=== PATIENT | female | born 1970 | race Caucasian/White ===

== ENCOUNTER 2023-03-20 16:23 | Outpatient (OUT) | payer OTHER, SELFPAY ==
[2023-03-20 16:41] LABS: Basophils Absolute Auto 0.1 10^3/uL (0.0-0.1); Basophils Percent Auto 1.3 % (0.2-2.0); Eosinophils Absolute Auto 0.1 10^3/uL (0.0-0.7); Eosinophils Percent Auto 1.8 % (0.9-7.0); Hematocrit 39.9 % (36.0-48.0); Hemoglobin 13.5 g/dL (12.0-16.0); Immature Granulocytes Abs Auto 0.01 10^3/uL (0.00-0.03); Immature Granulocytes Pct Auto 0.2 % (0.0-0.5); Mean Corpuscular HGB Conc 33.8 g/dL (29.9-35.2); Mean Corpuscular Hemoglobin 30.7 pg (26.7-34.0); Mean Corpuscular Volume 90.7 fL (81.0-99.0); Mean Platelet Volume 9.5 fL (9.5-13.5); Monocytes Absolute Auto 0.6 10^3/uL (0.3-0.8); Monocytes Percent Auto 10.5 % (1.7-12.0); Neutrophils Absolute Auto 2.7 10^3/uL (1.4-6.5); Neutrophils Percent Auto 49.2 % (43.0-75.0); Platelet Count 304 10^3/uL (150-450); Red Cell Distribution Width 12.1 % (11.0-15.0); White Blood Count 5.4 10^3/uL (4.0-11.0)
== END 2023-03-20 16:24 | disposition home or self-care (01) ==
LOC: LAB 16:23
PROVIDERS: Nurse Practitioner Family; PCP Family Medicine; Visit Provider Family Medicine
DX: R53.83 Other fatigue (principal)
CPT/HCPCS: 36415; 85025

== ENCOUNTER 2023-03-21 15:20 | Outpatient (OUT) | payer OTHER, SELFPAY ==
--- NOTE | 2023-03-21 | MM_ITS ---
Patient: LAUREN HARRELL Exam Date: 03/21/2023 : 1970 Gender:F Ordering : DR MISTI JIMÉNEZ Admission #: [id number] Family : DR Manuel Saucedo . Order #: [id number] CLICK HERE TO VIEW EXAM RADIOLOGY REPORT PROCEDURE: MM TOMOSYNTHESIS SCREENING BI COMPARISON: MG MAMM SCREEN 3D SB CAD, 03/20/2022. INDICATIONS: Screening Calculator Name NCI Breast Cancer Risk Assessment Tool 5 Year Breast Cancer Risk 1.20% Lifetime Breast Cancer Risk 8.50% Personal Breast Cancer No Personal Ovarian Cancer No Treatments None Family Cancers Grandmother-paternal with breast cancer at age ~65; Father with lymphoma cancer at age 70. LOCATION: [facility] BREAST COMPOSITION: Heterogeneously dense,which may obscure small masses. FINDINGS: DIAGNOSTIC CATEGORY 2--BENIGN FINDING. NO CHANGE FROM COMPARISON. Scattered benign-appearing calcifications are present. Scattered benign-appearing lymph nodes are present. This exam includes additional mammographic views for implant evaluation and shows no visible implant abnormality. RIGHT BREAST: No significant suspicious finding. LEFT BREAST: No significant suspicious finding. RECOMMENDATIONS: ROUTINE MAMMOGRAM AND CLINICAL EVALUATION IN 12 MONTHS. PLEASE NOTE: A NORMAL MAMMOGRAM DOES NOT EXCLUDE THE POSSIBILITY OF BREAST CANCER. A CLINICALLY SUSPICIOUS PALPABLE LUMP SHOULD BE BIOPSIED. Dictated by: Pj Rocha MD on 03/22/2023 at 08:33 Approved by: Pj Rocha MD on 03/22/2023 at 08:36
== END 2023-03-21 15:21 | disposition home or self-care (01) ==
LOC: MAMMO 15:21
PROVIDERS: PCP Family Medicine; Visit Provider Obstetrics & Gynecology
DX: Z12.31 Encounter for screening mammogram for malignant neoplasm of breast (principal); Z80.3 Family history of malignant neoplasm of breast; Z80.7 Family history of other malignant neoplasms of lymphoid, hematopoietic and related tissues
CPT/HCPCS: 77063; 77067

== ENCOUNTER 2024-03-24 15:21 | Outpatient (OUT) | payer OTHER, SELFPAY ==
--- NOTE | 2024-03-24 15:23 | MM_ITS ---
Patient Name: LAUREN HARRELL MR#: [id number] : 1970 Exam Date: 03/24/2024 Ordering Doctor: DR MISTI JIMÉNEZ RADIOLOGY REPORT PROCEDURE: MM TOMOSYNTHESIS SCREENING BI COMPARISON: MM TOMOSYNTHESIS SCREENING BI, 03/21/2023. MG MAMM SCREEN 3D SB CAD, 03/20/2022. MG MAMM SCREEN 3D SB CAD, 03/14/2021. MG MAMM SCREEN SB W CAD, 12/02/2012. INDICATIONS: Screening Calculator Name NCI Breast Cancer Risk Assessment Tool 5 Year Breast Cancer Risk 1.20% Lifetime Breast Cancer Risk 8.30% Personal Breast Cancer No Personal Ovarian Cancer No Treatments None Family Cancers Grandmother-paternal with breast cancer at age ~65; Father with lymphoma cancer at age 70. LOCATION: [facility] BREAST COMPOSITION: The breasts are heterogeneously dense,which may obscure small masses. FINDINGS: DIAGNOSTIC CATEGORY 2--BENIGN FINDING: RIGHT BREAST: No significant suspicious finding. Stable heterogeneous breast parenchyma. This exam includes additional mammographic views for implant evaluation and shows no visible implant abnormality. No significant change has occurred. LEFT BREAST: No significant suspicious finding. Stable heterogeneous breast parenchyma. This exam includes additional mammographic views for implant evaluation and shows no visible implant abnormality. No significant change has occurred. RECOMMENDATIONS: ROUTINE MAMMOGRAM AND CLINICAL EVALUATION IN 12 MONTHS. PLEASE NOTE: A NORMAL MAMMOGRAM DOES NOT EXCLUDE THE POSSIBILITY OF BREAST CANCER. A CLINICALLY SUSPICIOUS PALPABLE LUMP SHOULD BE BIOPSIED. Dictated by: Malcolm Rand M.D. on 03/25/2024 at 11:16 Approved by: Malcolm Rand M.D. on 03/25/2024 at 11:30
== END 2024-03-24 15:22 | disposition home or self-care (01) ==
LOC: MAMMO 15:21
PROVIDERS: PCP Family Medicine; Visit Provider Obstetrics & Gynecology
DX: Z12.31 Encounter for screening mammogram for malignant neoplasm of breast (principal); Z80.3 Family history of malignant neoplasm of breast; Z80.7 Family history of other malignant neoplasms of lymphoid, hematopoietic and related tissues
CPT/HCPCS: 77063; 77067

== ENCOUNTER 2025-03-30 15:53 | Outpatient (OUT) | payer OTHER, SELFPAY ==
--- OUTSIDE RECORDS SUMMARY | 2025-03-30 15:55 | XMS_ITS | Encounter Summary ---
Author Organization [facility] Address [address] [place] [address] Care Team Providers Care Group Contract Analyst Name Role Phone Manuel Saucedo MD Primary Care Provider [phone] Encounter Details Date Type Department Care Team (Late Contact Info) Description 04/07/2024 Orders Only MARSHA BOURNE [address] [facility] [address] [place] [phone] Chau Limon MD [address] [facility] [address] [place] [address] Social History Tobacco Use Types Packs/Day Years Used Date Smoking Tobacco: Never Smokeless Tobacco: Never Alcohol Use Standard Drinks/Week Comments Not Currently 0 (1 standard drink = 0.6 oz pure alcohol) caffeine: 1-2 cups per days, coffee Comments No Sex and Gender Information Value Date Recorded Sex Assigned at Female 12/25/2022 3:44 PM EDT Legal Sex Female 6:46 PM EDT Gender Identity Female 12/25/2022 3:44 PM EDT Sexual Orientation Not on file documented as of this encounter Plan of Treatment Upcoming Encounters Date Type Department Care Team (Late Contact Info) Description 01/10/2026 10:00 AM EDT Office Visit MARSHA BOURNE [address] [place] [address] Chau Liomn MD [address] [place] [address] documented as of this encounter Procedures Procedure Name Priority Date/Time Associated Diagnosis Comments MAMMOGRAM* Routine 03/24/2024 8:17 AM EDT documented in this encounter Results * MAMMOGRAM* (03/24/2024 8:17 AM EDT) Anatomical Region Laterality Modality Radiographic Sherie ging us Chau Limon MD IMG XR PROCEDURES Final Result documented in this encounter Visit Diagnoses Not on filedocumented in this encounter Care Teams Group Contract Analyst Relationship Specialty Start Date End Date Manuel Saucedo MD PCP - General Family Medicine 11/16/22 documented as of this encounter
--- OUTSIDE RECORDS SUMMARY | 2025-03-30 15:55 | XMS_ITS | Encounter Summary ---
Author Organization [facility] Address [address] [facility] [place] [address] Care Team Providers Care Pump Room Operator Name Role Phone Manuel Saucedo MD Primary Care Provider [phone] Encounter Details Date Type Department Care Team (Late Contact Info) Description 03/25/2024 Clinisync Result Encounter [facility] External Department Unsolicited Chau Jiménez MD [address] [facility] [address] [place] [address] Social History Tobacco Use Types Packs/Day Years [...] EDT Office Visit MARSHA BOURNE [address] [facility] [address] [place] [phone] Chau Jiménez MD [address] [facility] [address] [place] [address] documented as of this encounter Procedures Procedure Name Priority Date/Time Associated Diagnosis Comments MM TOMOSYNTHESIS SCREENING BI 03/25/2024 11:30 AM EDT documented in this encounter Results * MM TOMOSYNTHESIS SCREENING BI (03/25/2024 11:30 AM EDT) Anatomical Region Laterality Modality Other 03/25/2024 11:3 0 AM EDT Narrative 03/25/2024 11:31 [place] [address] Mammography Report Signed Patient: LAUREN HARRELL MR#: [id number] : 1970 Acct:[id number] Age/Sex: 53 / F ADM Date: 03/24/24 Loc: MAMMO Attending Dr: CHAU JIMÉNEZ Ordering Physician: CHAU JIMÉNEZ Results: Date of Service: 03/24/24 Follow Up: Procedure(s): MM tomosynthesis screening BI Accession Number(s): [id number] cc: Manuel Saucedo M.D.; CHAU JIMÉNEZ Patient Name: LAUREN HARRELL MR#: [id number] : 1970 Exam Date: 03/24/2024 Ordering Doctor: DR CHAU JIMÉNEZ RADIOLOGY REPORT PROCEDURE: MM TOMOSYNTHESIS SCREENING BI COMPARISON: MM TOMOSYNTHESIS SCREENING BI, 03/21/2023. MG MAMM SCREEN 3D SB CAD, 03/20/2022. MG MAMM SCREEN 3D SB CAD, 03/14/2021. MG MAMM SCREEN SB W CAD, 12/02/2012. INDICATIONS: Screening Calculator Name NCI Breast Cancer Risk Assessment Tool 5 Year Breast Cancer Risk 1.20% Lifetime Breast Cancer Risk 8.30% Personal Breast Cancer No Personal Ovarian Cancer No Treatments None Family Cancers Grandmother-paternal with breast cancer at age 65; Father with lymphoma cancer at age 70. LOCATION: The [facility] BREAST COMPOSITION: The breasts are heterogeneously dense,which may obscure small masses. FINDINGS: DIAGNOSTIC CATEGORY 2--BENIGN FINDING: RIGHT BREAST: No significant suspicious finding. Stable heterogeneous breast parenchyma. This exam includes additional mammographic views for implant evaluation and shows no visible implant abnormality. No significant change has occurred. LEFT BREAST: No significant suspicious finding. Stable heterogeneous breast parenchyma. This exam includes additional mammographic views for implant evaluation and shows no visible implant abnormality. No significant change has occurred. RECOMMENDATIONS: ROUTINE MAMMOGRAM AND CLINICAL EVALUATION IN 12 MONTHS. PLEASE NOTE: A NORMAL MAMMOGRAM DOES NOT EXCLUDE THE POSSIBILITY OF BREAST CANCER. A CLINICALLY SUSPICIOUS PALPABLE LUMP SHOULD BE BIOPSIED. Dictated by: Malcolm Rand M.D. on 03/25/2024 at 11:16 Approved by: Malcolm Rand M.D. on 03/25/2024 at 11:30 Dictated By: Malcolm Rand M.D. Signed By: 03/25/24 1131 DD/ 1130 TD/TT: Head Greenskeeper: Procedure Note Radiology, Radiologist, MD - 03/25/2024 [place] [address] Mammography Report Signed Patient: LAUREN HARRELL AMR#: [id number] : 1970Acct:[id number] Age/Sex: 53 / FADM Date: 03/24/24 Loc: MAMMO Attending Dr: CHAU JIMÉNEZ Ordering Physician: CHAU JIMÉNEZResults: Date of Service: 03/24/24Follow Up: Procedure(s): MM tomosynthesis screening BI Accession Number(s): [id number] cc: Manuel Saucedo M.D.; CHAU JIMÉNEZ Patient Name: LAUREN HARRELL MR#: [id number] : 1970 Exam Date: 03/24/2024 Ordering Doctor: DR CHAU JIMÉNEZ RADIOLOGY REPORT PROCEDURE: MM TOMOSYNTHESIS SCREENING BI COMPARISON: MM TOMOSYNTHESIS SCREENING BI, 03/21/2023. MG MAMM [id number] SB CAD, 03/20/2022. MG MAMM SCREEN 3D SB CAD, 03/14/2021. MG MAMMSCREEN SB W CAD, 12/02/2012. INDICATIONS: Screening Calculator Name NCI Breast Cancer Risk Assessment Tool 5 Year Breast Cancer Risk 1.20% Lifetime Breast Cancer Risk 8.30% Personal Breast Cancer No Personal Ovarian Cancer No Treatments None Family Cancers Grandmother-paternal with breast cancer at age 65; Father with lymphoma cancer at age 70. LOCATION: [facility] BREAST COMPOSITION: The breasts are heterogeneously dense,which may obscure small masses. FINDINGS: DIAGNOSTIC CATEGORY 2--BENIGN FINDING: RIGHT BREAST: No significant suspicious finding. Stable heterogeneousbreast parenchyma. This exam includes additional mammographic views for implant evaluation and shows no visible implant abnormality. No significantchange has occurred. LEFT BREAST: No significant suspicious finding. Stable heterogeneousbreast parenchyma. This exam includes additional mammographic views for implant evaluation and shows no visible implant abnormality. No significantchange has occurred. RECOMMENDATIONS: ROUTINE MAMMOGRAM AND CLINICAL EVALUATION IN 12 MONTHS. PLEASE NOTE: A NORMAL MAMMOGRAM DOES NOT EXCLUDE THE POSSIBILITY OFBREAST CANCER. A CLINICALLY SUSPICIOUS PALPABLE LUMP SHOULD BE BIOPSIED. Dictated by: Malcolm Rand M.D. on 03/25/2024 at 11:16 Approved by: Malcolm Rand M.D. on 03/25/2024 at 11:30 Dictated By: Malcolm Rand M.D. Signed By:03/25/24 1131 DD/ 1130 TD/TT: Head Greenskeeper: us Chau Jiménez MD [facility] Final Result documented in this encounter Visit Diagnoses Not on filedocumented in this encounter Care Teams Pump Room Operator Relationship Specialty Start Date End Date Manuel Saucedo MD PCP - General Family Medicine 11/16/22 documented as of this encounter
--- OUTSIDE RECORDS SUMMARY | 2025-03-30 15:55 | XMS_ITS | Patient Health Record ---
Author Organization [facility] [place] Address [address] [place] [address] Care Team Providers Care Addresser Name Role Phone Jeanmarie Saucedo Primary Care Provider [phone] Allergies Allergen (clinical drug ingredient) Drug/Non Drug Allergy documented on EMR Reaction Allergy Type Onset Date Status Penicillin hives/ throat swelling Drug Allergy Active Results Component Value Reference Range Notes CBC AUTO DIFF Reviewed date:02/02/2025 08:31:50 PM Interpretation: Performing Lab: Notes/Report: [facility] , White Blood Count 4.5 4.0-11.0 10 3/uL Red Blood Count 4.69 4.20-5.40 10 6/uL Hemoglobin 14.7 12.0-16.0 g/dL Hematocrit 43.3 36.0-48.0 % Mean Corpuscular Volume 92.3 81.0-99.0 fL Mean Corpuscular Hemoglobin 31.3 26.7-34.0 pg Mean Corpuscular HGB Conc 33.9 29.9-35.2 g/dL Red Cell Distribution Width 12.4 11.0-15.0 % Platelet Count 291 150-450 10 3/uL Mean Platelet Volume 10.6 9.5-13.5 fL Neutrophils Percent Auto 46.3 43.0-75.0 % Lymphocytes Percent Auto 39.4 20.5-60.0 % Monocytes Percent Auto 9.8 1.7-12.0 % Eosinophils Percent Auto 2.9 0.9-7.0 % Basophils Percent Auto 1.6 0.2-2.0 % Immature Granulocytes Pct Auto 0.0 0.0-0.5 % Neutrophils Absolute Auto 2.1 1.4-6.5 10 3/uL Lymphocytes Absolute Auto 1.8 1.2-3.8 10 3/uL Monocytes Absolute Auto 0.4 0.3-0.8 10 3/uL Eosinophils Absolute Auto 0.1 0.0-0.7 10 3/uL Basophils Absolute Auto 0.1 0.0-0.1 10 3/uL Immature Granulocytes Abs Auto 0.00 0.00-0.03 10 3/uL Performing Lab: see note ML - [facility] LB LIPID PROFILE Reviewed date:02/02/2025 08:31:50 PM Interpretation: Performing Lab: Notes/Report: [facility] , Triglycerides 40 <=150 mg/dL Cholesterol 228 <=200 mg/dL HDL Cholesterol 112 40-60 mg/dL > or =60 mg/dl - LOW CARDIOVASCULAR RISK <40 mg/dl - HIGH CARDIOVASCULAR RISK LDL Cholesterol Calculated 108.0 130-159 mg/dl BORDERLINE HIGH >190 mg/dl VERY HIGH 100-129 mg/dl NEAR OR ABOVE OPTIMAL 160-189 mg/dl HIGH <100 mg/dl OPTIMAL VLDL CHOLESTEROL 8.0 Chol HDL Ratio 2.0 >11.0 HIGH RISK 4.4 - 7.1 AVERAGE RISK 7.1 - 11.0 MODERATE RISK 3.3 - 4.4 LOW RISK Performing Lab: see note ML - [facility] LB PROF 14(COMP METB) Reviewed date:02/02/2025 08:31:50 PM Interpretation: Performing Lab: Notes/Report: [facility] , Sodium 140 136-145 mmol/L Potassium 4.3 3.5-5.1 mmol/L Chloride 104 98-107 mmol/L Carbon Dioxide 25.3 21.0-32.0 mmol/L Anion Gap 15.0 Glucose 77 74-106 mg/dL Blood Urea Nitrogen 19.0 7.0-18.0 mg/dL Creatinine 0.68 0.55-1.02 mg/dL Estimated GFR ( Brynn >60 >=60 mL/min/1.73m 2 Estimated GFR (Non- Brittny >60 >=60 mL/min/1.73m 2 BUN Creatinine Ratio 27.9 Calcium 8.8 8.5-10.1 mg/dL Bilirubin Total 0.5 0.2-1.0 mg/dL Aspartate Amino Transferase 23 15-37 U/L Alanine Aminotransferase 19 14-59 U/L Alkaline Phosphatase 51 46-116 U/L Total Protein 7.5 6.4-8.2 g/dL Albumin Level 4.0 3.4-5.0 g/dL Globulin 3.5 Albumin Globulin Ratio 1.1 Performing Lab: see note ML - [facility] LB TSH Reviewed date:02/02/2025 08:31:50 PM Interpretation: Performing Lab: Notes/Report: [facility] , Thyroid Stimulating Hormone 2.663 0.358-3.740 u IU/mL Performing Lab: see note ML - [facility] LB Reason For Referral Diagnosis 1 Left ear pain (H92.0 2) Referral Organization [facility] Referring Provider First Name Jeanmarie Referring Provider Last Name Lewis Referring Provider Speciality Family [facility] oly Referred Provider Elizabeth Nayak Referred Provider Specialty Otolaryngolo gy Referral Priority Routine Medications Medication SIG (Take, Route, Frequency, Duration) Notes Start Date End Date Status Progesterone Active Social History Tobacco Use: Social History Observation Description Date Details (start date - stop date) Never Smoker NA - NA Tobacco Use/Smoking Question Answer Notes Patient is a nonsmoker Alcohol Screen (Audit-C) Question Answer Notes Did you have a drink contain ing alcohol in the past year? Yes How often did you have 6 or more drinks on one occasion in the past year? Never (0 point) How many drinks did you have on a typical day when you were drinking in the past year? 1 or 2 drinks (0 point) How often did you have a dri nk containing alcohol in the past year? Monthly (2 points) Points 2 Interpretation Negative Problems Problem Type SNOMED Code ICD Code Onset Dates Problem Status W/U Status Risk Notes Problem Lumbosacral spondylosis without myelopathy (71367898) Other spondylosis with radiculopathy, lumbar region (M47.26) Active confirmed Problem Degeneration of lumbar intervertebral disc (68333289) Other intervertebral disc degeneration, lumbar region (M51.36) Active confirmed Problem Cervical radiculopathy (32454781) Radiculopathy, cervicothoracic region (M54.13) Active confirmed Problem Palpitations (52396812) Palpitations (R00.2) Active confirmed Problem Skin sensation disturbance (14957180) Unspecified disturbances of skin sensation (R20.9) Active confirmed Problem Wedge compressio n fracture of fourth lumbar vertebra, subsequent encounter for fracture with delayed healing (S32.040G) Active confirmed Problem Closed fracture of distal end of left radius (92288798157678007) Other intraarticular fracture of lower end of left radius, initial encounter for closed fracture (S52.572A) Active confirmed Problem Neck pain (57332798) Neck pain (M54.2) Active confirmed Problem Knee pain (9948817322) Knee pain (M25.569) Active confirmed Problem Degeneration of cervical intervertebral disc (90397080) Degenerative disc disease, cervical (M50.30) Active confirmed Problem Acute sinusitis (55784963) Acute sinusitis (J01.90) Active confirmed Problem Disorder of lumbar disc (732521493) Lumbar disc disease (M51.9) Active confirmed Problem Serous otitis media (63764778) Serous otitis media (H65.90) Active confirmed Problem Gastritis (4921541) Gastritis (K29.70) Active c onfirmed Problem Well adult (995074068) Well adult (Z00.00) Active confirmed Problem Cervical spondylosis with myelopathy (M47.12) Active confirmed Problem Pain in limb (31223466) Hand pain, left (M79.642) Active confirmed Problem Scoliosis (102476720) Scoliosis (M41.9) Active confirmed Problem Chest wall pain (390557524) Chest wall pain (R07.89) Active confirmed Problem Acquired spondylolisthesis (128533486) Spondylolisthesis of lumbar region (M43.16) Active confirmed Problem Premenstrual tension syndrome (66758334) PMS (premenstrual syndrome) (N94.3) Active confirmed Problem Labyrinthitis (54655543) Labyrinthitis (H83.09) Active confirmed Problem Open wound of finger (925007141) Open wound of finger (S61.209A) Active confirmed Problem Peripheral vertigo (03820042) Peripheral vertigo (H81.399) Active confirmed Problem Patellar tendonitis (20031514) Patellar tendonitis (M76.50) Active confirmed Problem Lipoma of skin (414498453) Lipoma of skin (D17.30) Active confirmed Problem Displacement of cervical intervertebral disc without myelopathy (80216338) Other cervical disc displacement, mid-cervical region, unspecified level (M50.220) Active confirmed Problem Cervical spondylosis without myelopathy (022604723) Spondylosis of cervical spine with radiculopathy (M47.22) Active confirmed Problem Low back pain (363770591) Low back pain, unspecified (M54.50) Active confirmed Vital Signs Blood pressure diastolic 86 mm Hg 06/04/2024 Height 64 in 06/04/2024 Blood pressure systolic 110 mm Hg 06/04/2024 Weight 123.4 lbs 06/04/2024 BMI 21.18 kg/m2 06/04/2024 Procedures Procedure Date Ordered Date Performed Result Body Sit e EAR IRRIGATION - performed 05/13/2024 N/A Encounters Encounter Location Date Provider Diagnosis [address] [address] 05/13/2024 Jeanmarie Hoy Cerumen impaction H61.20 ; Hand pain M79.643 and Excessive cerumen in left ear canal H61.[address] [address] 06/04/2024 Jeanmarie Hoy Serous otitis media H65.[address] [address] 02/02/2025 Jeanmarie Hoy [address] [address] 05/22/[address] [facility] [address] [place] [address] 09/14/2024 Jeanmarie Hoy Left ear pain H92.0 2 Assessments Encounter Date Diagnosis (ICD Code) Assessment Notes Treatment Notes Treatment Clinical Notes Section Notes 06/04/2024 Serous otitis media (ICD-10 - H65.90) dpuible th claritin - do the flonase and gavage and if not better -- see dr Nayak 05/13/2024 Cerumen impaction (ICD-10 - H61.20) 05/13/2024 Hand pain (ICD-10 - M79.643) no x-ray needed 09/14/2024 Left ear pain (ICD-10 - H92.02) 05/13/2024 Excessive cerumen in left ear canal (ICD-10 - H61.22) Plan Of Treatment Pending Test Test Name Order Date EAR IRRIGATION - performed 05/13/2024 CBC AUTO DIFF 02/03/2023 MRI LSPINE WO CON 10/03/2022 Insurance Providers Payer Name Payer Address Payer Phone Subscriber Number Group Number Insured Name Patient Relationship to Insured Coverage Start Date Coverage End Date MMO [employer] [address] [place] [phone] [id number] Darrick garcia Yuko Self - patient is the insured Medical (General) History Medical History History ICD Code Other intraarticular fractur e of lower end of left radius, initial encounter for closed fracture S52.572A Acute sinusitis J01.90 Otitis media, serous H65.90 Hand pain, left M79.642 Knee pain M25.569 Palpitations R00.2 Well adult Z00.00 Lumbar disc disease M51.9 Neck pain M54.2 Low back pain, unspecified M54.50 Cervical spondylosis with myelopathy M47 .12 Other cervical disc displacement, mid-ce rvical region, unspecified level M50.220 Wedge compression fracture o f fourth lumbar vertebra, subsequent encounter for fracture with delayed healing S32.040G Scoliosis M41.9 Spondylolisthesis of lumbar region M43.1 6 Spondylosis of cervical spine with radic ulopathy M47.22 Other spondylosis with radiculopathy, maryjane mbar region M47.26 Chest wall pain R07.89 Hand pain, left M79.642 Open wound of finger S61.209A Patellar tendonitis M76.50 Radiculopathy, cervicothoracic region M5 4.13 Degenerative disc disease, cervical M50. 30 Labyrinthitis H83.09 Peripheral vertigo H81.399 Unspecified disturbances of skin sensati on R20.9 Lipoma of skin D17.30 PMS (premenstrual syndrome) N94.3 Surgical History Surgery Date(Month/Year) Left wrist surgery 03/2022
--- OUTSIDE RECORDS SUMMARY | 2025-03-30 15:55 | XMS_ITS | Encounter Summary ---
Author Organization [facility] Address [address] [facility] [place] [address] Care Team Providers Care Optical Instrument Assembly Supervisor Name Role Phone Manuel Saucedo MD Primary Care Provider [phone] Encounter Details Date Type Department Care Team (Late Contact Info) Description 03/22/2023 Clinisync Result Encounter [facility] External Department Unsolicited Chau Jiménez MD [address] [facility] [address] [place] [address] Social History Tobacco Use Types Packs/Day Years [...] Description 01/10/2026 10:00 AM EDT Office Visit [facility] [address] [facility] [address] [place] [id number] Chau Jiménez MD [address] [facility] [address] [place] [address] documented as of this encounter Procedures Procedure Name Priority Date/Time Associated Diagnosis Comments MM TOMOSYNTHESIS SCREENING BI 03/22/2023 8:36 AM EDT documented in this encounter Results * MM TOMOSYNTHESIS SCREENING BI (03/22/2023 8:36 AM EDT) Anatomical Region Laterality Modality Other 03/22/2023 8:36 AM EDT Narrative 03/22/2023 8:[place] [address] Mammography Report Signed Patient: LAUREN HARRELL MR#: [id number] : 1970 Acct:[id number] Age/Sex: 52 / F ADM Date: 03/21/23 Loc: MAMMO Attending Dr: CHAU JIMÉNEZ Ordering Physician: CHAU JIMÉNEZ Results: Date of Service: 03/21/23 Follow Up: Procedure(s): MM tomosynthesis screening BI Accession Number(s): [id number] cc: Manuel Saucedo M.D.; CHAU JIMÉNEZ Patient: LAUREN HARRELL Exam Date: 03/21/2023 : 1970 Gender:F Ordering : DR CHAU JIMÉNEZ Admission #: [id number] Family : DR Manuel Saucedo . Order #: [id number] CLICK HERE TO VIEW EXAM RADIOLOGY REPORT PROCEDURE: MM TOMOSYNTHESIS SCREENING BI COMPARISON: MG MAMM SCREEN 3D SB CAD, 03/20/2022. INDICATIONS: Screening Calculator Name NCI Breast Cancer Risk Assessment Tool 5 Year Breast Cancer Risk 1.20% Lifetime Breast Cancer Risk 8.50% Personal Breast Cancer No Personal Ovarian Cancer No Treatments None Family Cancers Grandmother-paternal with breast cancer at age 65; Father with lymphoma cancer at age 70. LOCATION: [facility] BREAST COMPOSITION: Heterogeneously dense,which may obscure small masses. FINDINGS: DIAGNOSTIC CATEGORY 2--BENIGN FINDING. NO CHANGE FROM COMPARISON. Scattered benign-appearing calcifications are present. Scattered benign-appearing lymph nodes are present. This exam includes additional mammographic views for implant evaluation and shows no visible implant abnormality. RIGHT BREAST: No significant suspicious finding. LEFT BREAST: No significant suspicious finding. RECOMMENDATIONS: ROUTINE MAMMOGRAM AND CLINICAL EVALUATION IN 12 MONTHS. PLEASE NOTE: A NORMAL MAMMOGRAM DOES NOT EXCLUDE THE POSSIBILITY OF BREAST CANCER. A CLINICALLY SUSPICIOUS PALPABLE LUMP SHOULD BE BIOPSIED. Dictated by: Pj Rocha MD on 03/22/2023 at 08:33 Approved by: Pj Rocha MD on 03/22/2023 at 08:36 Dictated By: Pj Rocha M.D. Signed By: 03/22/2337 DD/ 5 TD/TT: Airport Baggage Screener: Procedure Note Radiology, Radiologist, MD - 03/22/2023 [place] [address] Mammography Report Signed Patient: LAUREN HARRELL AMR#: [id number] : 1970Acct:[id number] Age/Sex: 52 / FADM Date: 03/21/23 Loc: MAMMO Attending Dr: CHAU JIMÉNEZ Ordering Physician: CHAU JIMÉNEZResults: Date of Service: 03/21/23Follow Up: Procedure(s): MM tomosynthesis screening BI Accession Number(s): [id number] cc: Manuel Saucedo M.D.; CHAU JIMÉNEZ Patient: LAUREN HARRELL Exam Date: 03/21/2023 : 1970 Gender:F Ordering : DR CHAU JIMÉNEZ Admission #: [id number] Family : DR Manuel Saucedo . Order #: [id number] CLICK HERE TO VIEW EXAM RADIOLOGY REPORT PROCEDURE: MM TOMOSYNTHESIS SCREENING BI COMPARISON: MG MAMM SCREEN 3D SB CAD, 03/20/2022. INDICATIONS: Screening Calculator Name NCI Breast Cancer Risk Assessment Tool 5 Year Breast Cancer Risk 1.20% Lifetime Breast Cancer Risk 8.50% Personal Breast Cancer No Personal Ovarian Cancer No Treatments None Family Cancers Grandmother-paternal with breast cancer at age 65; Father with lymphoma cancer at age 70. LOCATION: [facility] BREAST COMPOSITION: Heterogeneously dense,which may obscure smallmasses. FINDINGS: DIAGNOSTIC CATEGORY 2--BENIGN FINDING. NO CHANGE FROM COMPARISON. Scattered benign-appearing calcifications are present. Scattered benign-appearing lymph nodes are present. This exam includes additional mammographic views for implant evaluation and shows no visible implant abnormality. RIGHT BREAST: No significant suspicious finding. LEFT BREAST: No significant suspicious finding. RECOMMENDATIONS: ROUTINE MAMMOGRAM AND CLINICAL EVALUATION IN 12 MONTHS. PLEASE NOTE: A NORMAL MAMMOGRAM DOES NOT EXCLUDE THE POSSIBILITY OFBREAST CANCER. A CLINICALLY SUSPICIOUS PALPABLE LUMP SHOULD BE BIOPSIED. Dictated by: Pj Rocha MD on 03/22/2023 at 08:33 Approved by: Pj Rocha MD on 03/22/2023 at 08:36 Dictated By: Pj Rocha M.D. Signed By:03/22/2337 DD/ TD/TT: Airport Baggage Screener: us Chau Jiménez MD [facility] Final Result documented in this encounter Visit Diagnoses Not on filedocumented in this encounter Care Teams Optical Instrument Assembly Supervisor Relationship Specialty Start Date End Date Manuel Saucedo MD PCP - General Family Medicine 11/16/22 documented as of this encounter
--- OUTSIDE RECORDS SUMMARY | 2025-03-30 15:55 | XMS_ITS | Encounter Summary ---
Author Organization [facility] Address [address] [place] [address] Care Team Providers Care Retail Brand Ambassador Name Role Phone Manuel Saucedo MD Primary Care Provider [phone] Encounter Details Date Type Department Care Team (Late Contact Info) Description 12/25/2022 Abstract [facility] [address] [place] [address] Chau Limon MD [address] [facility] [address] [place] [address] Social History Tobacco Use Types Packs/Day Years [...] Upcoming Encounters Date Type Department Care Team ([facility] Contact Info) Description 01/10/2026 10:00 AM EDT Office Visit [facility] [address] [place] [address] Chau Limon MD [address] [place] [address] documented as of this encounter Visit Diagnoses Not on filedocumented in this encounter Care Teams Retail Brand Ambassador Relationship Specialty Start Date End Date Manuel Saucedo MD PCP - General Family Medicine 11/16/22 documented as of this encounter
--- OUTSIDE RECORDS SUMMARY | 2025-03-30 15:55 | XMS_ITS | Clinical Summary ---
Author Organization [employer] [facility] Address [id number] [address] [place] [address] Care Team Providers Care Hardboard Press Operator Name Role Phone Manuel Saucedo MD Primary Care Provider [phone] Allergies Active Allergy Reactions Criticality Noted Date Comments Penicillins Hives 03/20/2022 Medications oxyCODONE-acetam inophen (PERCOCET) 5-325 mg per tablet Take 1 tablet by mouth every 6 (six) hours as needed. 03/17/2022 Active valACYclovir (VALTREX) 500 mg tablet Take 1 tablet by mouth as needed. 03/07/2022 Active Social History Tobacco Use Types Packs/Day Years Used Date Smoking Tobacco: Never Smokeless Tobacco: Never Alcohol Use Standard Drinks/Week Comments Yes 0 (1 standard drink = 0.6 oz pur e alcohol) social Comments No Sex and Gender Information Value Date Recorded Sex Assigned at Not on file Legal Sex Female 10:26 AM EDT Gender Identity Not on file Sexual Orientation Not on file Last Filed Vital Signs Vital Sign Reading Time Taken Comments Blood Pressure 108/88 03/21/2022 5:48 PM EDT Pulse 63 03/21/2022 5:48 PM EDT Temperature 36.5 C (97.7 F) 03/21/2022 5:09 PM EDT Respiratory Rate 14 03/21/2022 5:48 PM EDT Oxygen Saturation 97% 03/21/2022 5:48 PM EDT Inhaled Oxygen Concentration - - Weight 54.4 kg (120 lb) 03/21/2022 1:17 PM EDT Height 162.6 cm (5' 4 ) 03/21/2022 1:17 PM EDT Body Mass Index 20.6 03/21/2022 1:17 PM EDT Plan of Treatment Health Maintenance Due Date Last Done Comments Depression Screening 1980 Tobacco Screening 1980 Adult BMI Screening 1986 DTaP,Tdap and Td Vaccines (1 - Tdap) 1987 Pap Smear 1989 Zoster (Shingles) Vaccine (1 of 2) 2018 COVID-19 Vaccine (4 - 2024-2 6 season) 2025 05/31/2021, 08/19/2020, 07/29/2020 Influenza Vaccine 02/15/2025 Medical Devices Implanted Type Area Environmental Test Technician Device Identifier Shelf Expiration Date Model / Serial / Lot Plate Bn Jayro Cntr 5 Hl Xtd Slot Gft Wdw Radl Lt Dist Volr Ti Rad Jayro Jayme Lo Prof Rig - [id number] - [id number] Implanted:Qty: 1 on 03/21/2022 by Fidencio Sutherland DO at [facility] Plate Left: Wrist Arthrex AR-[id number]- 05 / AR-8916VNL- 05 / 2.4 Mm Melanie Screws Titanium [id number] Implanted:Qty: 1 on 03/21/2022 by Fidencio Sutherland DO at [facility] Left: Wrist Arthrex AR-8724VCL- 18 / AR-8724VCL- 18 / 2.4 Mm Melanie Screws Titanium [id number] Implanted:Qty: 2 on 03/21/2022 by Fidencio Sutherland DO at [facility] Left: Wrist Arthrex AR-[id number]- 20 / AR-[id number]- 20 / 3.5 Mm Low Profile Screw Fixed Angle Locking Titanium Cortical [id number] Implanted:Qty: 2 on 03/21/2022 by Fidencio Sutherland DO at [facility] Left: Wrist Arthrex 8935VCL-12 / [id number]-12 / 3.5 Mm Low Profile Screw Nonlocking, Titanium, Cortical [id number] Implanted:Qty: 1 on 03/21/2022 by Fidencio Sutherland DO at [facility] Left: Wrist Arthrex AR-8935-12 / [id number] / Insurance [employer] Care Teams Hardboard Press Operator Relationship Specialty Start Date End Date Manuel Saucedo MD PCP - General Family Medicine 03/20/22
--- OUTSIDE RECORDS SUMMARY | 2025-03-30 15:55 | XMS_ITS | Clinical Summary ---
Author Organization [facility] Address [address] [place] [address] Care Team Providers Care Appellate Court Clerk Name Role Phone Manuel Saucedo MD Primary Care Provider [phone] Allergies Active Allergy Reactions Criticality Noted Date Comments Penicillins Hives,Unknown 03/17/2022 Medications nabumetone (Relafen) 500 MG tablet every 12 (twelve) hours 2 Active fluticasone (Flonase) 50 MCG/ACT nasal sprayIndication s:Nasal congestion Administer 2 sprays into each nostril Daily Shake gently. Before first use, prime pump. After use, clean tip and replace cap. 48 g 3 5 10/14/19 26 Active estradiol (Estrace) 1 MG tabletIndicatio ns:Menopausal symptoms Take 1 tablet (1 mg) by mouth Daily 90 tablet 3 5 01/05/20 26 Active progesterone (Prometrium) 100 MG capsuleIndicati ons:Menopausal symptoms Take 1 capsule (100 mg) by mouth Daily 90 capsule 3 5 Active valACYclovir (Valtrex) 500 MG tabletIndicatio ns:History of HPV infection Take 1 tablet (500 mg) by mouth Daily 90 tablet 3 5 01/07/20 26 Active Active Problems Problem Noted Date Diagnosed Date Arthritis of carpometacarpal (CMC) joint of left thumb 09/28/2024 Chronic left maxillary sinusitis 09/28/2024 Hearing loss of left ear 09/28/2024 Lumbosacral spondylosis without myelopathy 09/28 Serous otitis media 09/28/2024 Other spondylosis with radiculopathy, lumbar reg ion 11/17/2022 Lumbar paraspinal muscle spasm 11/17/2022 Encounters Date Type Department Care Team Description 01/08/2025 Refill [facility] [address] [place] [address] Heena Carballo LPN History of HPV infection 01/04/2025 2:00 PM EDT Office Visit [facility] [address] [place] [address] Chau Limon MD Well woman exam with routine gynecological exam (Primary Dx); Menopausal symptoms; Cervical cancer screening; Other screening mammogram; Screening for HPV (human papillomavirus); History of HPV infection 01/04/2025 Travel from Last 3 Months Family History Medical History Relation Name Comments Breast cancer Mother's Sister Heidi Breast cancer Paternal Grandmother Gill Relation Name Status Comments Father Alive Mother Alive Mother's Sister Heidi Paternal Grandmother Gill Social History Tobacco Use Types Packs/Day Years Used Date Smoking Tobacco: Never Smokeless Tobacco: Never Tobacco Cessation:Counseling Given: Not Answered Alcohol Use Standard Drinks/Week Comments Not Currently 0 (1 standard drink = 0.6 oz pure alcohol) caffeine: 1-2 cups per days, coffee Comments No Sex and Gender Information Value Date Recorded Sex Assigned at Female 12/25/2022 3:44 PM EDT Legal Sex Female 6:46 PM EDT Gender Identity Female 12/25/2022 3:44 PM EDT Sexual Orientation Not on file Last Filed Vital Signs Vital Sign Reading Time Taken Comments Blood Pressure 112/66 01/04/2025 1:42 PM EDT Pulse 86 10/13/2024 2:55 PM EDT Temperature - - Respiratory Rate - - Oxygen Saturation - - Inhaled Oxygen Concentration - - Weight 55.3 kg (122 lb) 01/04/2025 1:42 PM EDT Height 162.6 cm (5' 4 ) 10/13/2024 2:55 PM EDT Body Mass Index 20.94 10/13/2024 2:55 PM EDT Plan of Treatment Upcoming Encounters Date Type Department Care Team (Late st Contact Info) Description 01/10/2026 10:00 AM EDT Office Visit [facility] [address] [place] [address] Chau Limon MD [address] [place] [address] Procedures Procedure Name Priority Date/Time Associated Diagnosis Comments IGP, APT HPV,RFX 16/18,45 Routine 01/04/2025 12:00 AM EDT Cervical cancer screening Screening for HPV (human papillomavirus) from Last 3 Months Results * IGP, APT HPV,RFX 16/18,45 (01/04/2025 12:00 AM EDT) Diagnosis: Comment [facility] Comment:NEGATIVE FOR INTRAEP ITHELIAL LESION OR MALIGNANCY. Specimen Adequacy: Comment [facility] Comment: Satisfactory for evaluation. Endocervical and/or squamous metaplastic cells (endocervical component) are present. Clinician Provided ICD10: Comment [facility] Comment: Z12.4 Z11.51 Performed By: Comment [facility] Comment:Diana Rocha, Cytolog ist (ASCP) Cyto Comments . [facility] Note: Comment [facility] Comment: The Pap smear is a screening test designed to aid in the detection of premalignant and malignant conditions of the uterine cervix. It is not a diagnostic procedure and should not be used as the sole means of detecting cervical cancer. Both false-positive and false-negative reports do occur. Test Methodology: Comment [facility] Comment: This liquid based ThinPrep(R) pap test was screened with the use of an image guided system. HPV Aptima Negative Negative [facility] Comment: This nucleic acid amplification test detects fourteen high-risk HPV types (16,18,31,33,35,39,45,51,52,56,58,59,66,68) without differentiation. Vaginal Fluid 01/04/2025 01/05/2025 Narrative [facility] - 01/06/2025 1:07 PM EDT Performed at: 01 - [facility] [address] [place], [place] [id number] Traveling Buyer: Pham Reaves MD, Phone: [phone] Performed at: 02 - [facility] [address] [place], [place] [id number] Traveling Buyer: Pham Reaves MD, Phone: [phone] Specimen Comment: No. of containers..01 ThinPrep Vial us Chau Limon MD LAB BLOOD ORDERABLES Final Res ult [facility] from Last 3 Months Insurance [employer] Care Teams Appellate Court Clerk Relationship Specialty Start Date End Date Manuel Saucedo MD PCP - General Family Medicine 11/16/22
--- OUTSIDE RECORDS SUMMARY | 2025-03-30 15:56 | XMS_ITS | CCD ---
Author Organization [facility] Care Team Providers Care Machine Sorter Name Role Phone PHYSICIAN, DEFAULT Unavailable Unavailable PHYSICIAN, DEFAULT Unavailable Unavailable MD Olga Saucedo Primary Care Provider [phone] SIM Fowler Emergency Provider [phone] Ever Fowler Attending Unavailable Ever Fowler Admitting Unavailable Olga Saucedo Primary Care Unavailable OLEMA, DR DEMARCO Estrada Consulting Unavailable PRINTY, DR CHAPPELL Admitting Unavailable PRINTY, DR CHAPPELL Attending Unavailable HOY ., DR ESPINOZA Primary Care Unavailable PRINTY, DR CHAPPELL Consulting Unavailable HOY ., DR ESPINOZA Attending Unavailable HOY ., DR ESPINOZA Admitting Unavailable HOY ., DR ESPINOZA Primary Care Unavailable HOY ., DR ESPINOZA Consulting Unavailable ZIEBER, DR ROSEMARIE Stanley Consulting Unavailable HOY ., DR ESPINOZA Attending Unavailable HOY ., DR ESPINOZA Admitting Unavailable HOY ., DR ESPINOZA Primary Care Unavailable HOY ., DR ESPINOZA Consulting Unavailable HOY ., DR ESPINOZA Attending Unavailable HOY ., DR ESPINOZA Admitting Unavailable HOY ., DR ESPINOZA Primary Care Unavailable HOY ., DR ESPINOZA Attending Unavailable HOY ., DR ESPINOZA Admitting Unavailable HOY ., DR ESPINOZA Primary Care Unavailable HOY ., DR ESPINOZA Consulting Unavailable ZIEBER, DR ROSEMARIE Stanley Consulting Unavailable HOY ., DR ESPINOZA Attending Unavailable HOY ., DR ESPINOZA Admitting Unavailable HOY ., DR ESPINOZA Primary Care Unavailable HOY ., DR ESPINOZA Consulting Unavailable Marvely Olga HIGH Primary Care Provider [phone] Olga Saucedo MD Primary Care Provider ELIZABETH ENCINAS Attending Unavailable MISTI LIMON Attending Unavailable Allergies Allergy Classification Reported Allergen(s) Allergy Type Date of Onset Reaction(s) Facility (9 sources) Penicillins; Translations: [Penicillins] Allergy to substance 5 Hives, Unknown [facility] Medications Current Medications Medication Drug Class(es) Dates Sig (Normalized) Sig (Original) acetaminophen 325 mg / oxyCODONE hydrochloride 5 mg oral tablet (1 source) Opioid Agonist Start: 03-17-2022 take 1 tablet by mouth every six hours Oxycodone-Acetami nophen (Endocet) 5-325 mg tablet Active 1 TAB PO Q6H 8 2 March 17, 2022 estradiol 1 mg oral tablet (8 sources) Estrogen Start: 12-31-2023 End: 01-04-2026 take 1 tablet by mouth once daily estradiol (Estrace) 1 MG tablet Indications: Menopausal symptoms Take 1 tablet (1 mg) by mouth Daily 90 tablet 3 01/04/2025 01/04/2026 Active fluticasone propionate 0.05 mg/actuat metered dose nasal spray (5 sources) Corticosteroid Start: 10-13-2024 End: 10-13-2025 take 2 spray(s) nasal route once daily fluticasone (Flonase) 50 MCG/ACT nasal spray Indications: Nasal congestion Administer 2 sprays into each nostril Daily Shake gently. Before first use, prime pump. After use, clean tip and replace cap. 48 g 3 10/13/2024 10/13/2025 Active nabumetone 500 mg oral tablet (6 sources) Nonsteroidal Anti-inflammatory Drug Start: 12-19-2021 nabumetone (Relafen) 500 MG tablet every 12 (twelve) hours 12/19/2021 Active progesterone 100 mg oral capsule (8 sources) Progesterone Start: 01-04-2025 take 1 capsule by mouth once daily progesterone (Prometrium) 100 MG capsule Indications: Menopausal symptoms Take 1 capsule (100 mg) by mouth Daily 90 capsule 3 01/04/2025 Active Start: 12-28-2024 End: 01-04-2025 take 1 capsule by mouth once daily at bedtime, then take 1-12 capsules by mouth every month progesterone 200 MG capsule Indications: Menopausal symptoms TAKE 1 CAPSULE BY MOUTH DAILY AT BEDTIME ON DAYS 1-12 EACH MONTH 12 capsule 12/28/2024 01/04/2025 Discontinued (Side effects) Start: 12-31-2023 take 1 capsule by [facility] once daily, then take 1-12 capsules by mouth every month at bedtime progesterone (Prometrium) 200 MG capsule Indications: Menopausal symptoms Take 1 capsule (200 mg) by mouth Daily Take at bedtime days 1-12 each month 36 capsule 3 12/31/2023 Active Completed/Discontinued Medications Medication Drug Class(es) Dates Sig (Normalized) Sig (Original) valACYclovir 500 mg oral tablet (5 sources) Herpesvirus Nucleoside Analog DNA Polymerase Inhibitor, Herpes Simplex Virus Nucleoside Analog DNA Polymerase Inhibitor, Herpes Zoster Virus Nucleoside Analog DNA Polymerase Inhibitor Start: 08-31-2024 End: 10-13-2024 take 1 tablet by mouth in the morning valACYclovir (Valtrex) 500 MG tablet Indications: HSV infection TAKE 1 TABLET BY MOUTH IN THE MORNING AND 1 TABLET BEFORE BEDTIME FOR 3 DAYS 6 tablet 7 08/31/2024 10/13/2024 Discontinued (Therapy completed) Problems Active Problems Problem Classification Problem Date Documented Date Episodic/Chronic Fracture of upper limb (2 sources) Fracture at wrist and/or hand level; Translations: [Fracture of unspecified carpal bone, unspecified wrist, initial encounter for closed fracture] Onset: 03-17-2022 03-17-2022 Episodic Immunizations and screening for infectious disease (2 sources) Patient encounter status; Translations: [Encounter for screening for human papillomavirus (HPV)] 01-04-2025 Episodic Menopausal disorders (2 sources) Menopausal symptom; Translations: [Menopausal and female climacteric states] 01-04-2025 Chronic Osteoarthritis (6 sources) Arthritis of first carpometacarpal joint of left hand; Translations: [Unilateral primary osteoarthritis of first carpometacarpal joint, left hand] Onset: 09-28-2024 09-28-2024 Chronic Other ear and sense organ disorders (6 sources) Hearing loss in left ear; Translations: [Unspecified hearing loss, left ear] Onset: 09-28-2024 09-28-2024 Chronic Other ear and sense organ disorders (2 sources) Otalgia, left ear; Translations: [Otalgia, unspecified] 10-13-2024 Episodic Other infections; including parasitic (2 sources) History of human papilloma virus infection; Translations: [Personal history of other infectious and parasitic diseases] 01-04-2025 Episodic Other screening for suspected conditions (not mental disorders or infectious disease) (8 sources) Encounter for screening mammogram for malignant neoplasm of breast; Translations: [Cancer cervix screening status] Onset: 03-20-2022 Episodic Other upper respiratory disease (2 sources) Nasal congestion; Translations: [Nasal congestion] 10-13-2024 Episodic Other upper respiratory infections (6 sources) Chronic left maxillary sinusitis; Translations: [Chronic maxillary sinusitis] Onset: 09-28-2024 09-28-2024 Chronic Spondylosis; intervertebral disc disorders; other back problems (16 sources) Other spondylosis with radiculopathy, lumbar region; Translations: [Lumbar spondylosis] Onset: 10-02-2022 Chronic Unclassified (1 source) Pain in left wrist; Translations: [Pain in left wrist] Onset: 03-17-2022 Unclassified (3 sources) COUGH, UNSPECIFIED; Translations: [COUGH, UNSPECIFIED] Onset: 06-08-2022 Unclassified (1 source) CONTACT W/AND (SUSP) EXPOS COVID-19; Translations: [CONTACT W/AND (SUSP) EXPOS COVID-19] Onset: 06-08-2022 Past or Other Problems Problem Classification Problem Date Documented Date Episodic/Chronic Other upper respiratory disease (1 source) Nasal congestion; Translations: [NASAL CONGESTION] Onset: 06-08-2022 Episodic Otitis media and related conditions (6 sources) Serous otitis media; Translations: [Unspecified nonsuppurative otitis media, unspecified ear] Onset: 09-28-2024 09-28-2024 Episodic Residual codes; unclassified (1 source) Family history of malignant neoplasm of breast; Translations: [FAMILY HX MALIG NEOPLASM OF BREAST] Onset: 03-22-2022 Episodic Residual codes; unclassified (1 source) Family history of other malignant neoplasms of lymphoid, hematopoietic and related tissues; Translations: [FAM HX OTH MAL MAUREEN LYMPH HEMATPOETC] Onset: 03-22-2022 Episodic Spondylosis; intervertebral disc disorders; other back problems (11 sources) Pain in thoracic spine; Translations: [Cervicalgia] Onset: 10-08-2022 Episodic Unclassified (1 source) COUGH, UNSPECIFIED; Translations: [COUGH, UNSPECIFIED] Onset: 06-04-2022 Results Test Name Value Interpretation Reference Range Facil ity XR CSPINE 2_3 VIEWSon 2022 XR CSPINE 2_3 VIEWS EXAMINATION: XR CSPINE 2_3 VIEWS HISTORY: Neck pain COMPARISON: No relevant comparison available. FINDINGS: BONES: Mild left convex curvature of cervical spine. Slight reversal of normal lordotic curvature. Mild degenerative facet arthropathy at all cervical levels. Minimal grade 1 anterolisthesis of C4 on 5. DISC SPACES: Mild narrowing C3-4, C4-5. Moderate narrowing C5-6, C6-7. Small-moderate disc-osteophyte complex suspected multiple levels. PARASPINOUS: Negative. No paraspinous abnormality is seen. OTHER: Negative. IMPRESSION: 1. Moderate degenerative changes of the cervical spine. 2. Abnormal curvature of cervical spine; positioning versus muscle spasm. Electronically authenticated by: ROSEMARIE MUHAMMAD Date: 2022-10-09 06:[address] [facility] XR TSPINE 2 VIEWSon 10-10-19 23 XR TSPINE 2 VIEWS EXAMINATION: XR TSPINE 2 VIEWS HISTORY: Pain in thoracic spine COMPARISON: No relevant comparison available. FINDINGS: BONES: Marked right convex curvature of thoracic spine. DISC SPACES: No significant disc height narrowing, subluxation, or endplate abnormality. PARASPINOUS: Negative. No paraspinous abnormality is seen. OTHER: Negative. IMPRESSION: 1. Marked dextroscoliosis of thoracic spine. 2. No appreciable acute abnormality or significant degenerative changes. Electronically authenticated by: ROSEMARIE MUHAMMAD Date: 2022-10-09 06:[address] [facility] XR LSPINE 2_3 VIEWSon 2022 XR LSPINE 2_3 VIEWS EXAMINATION: XR LSPINE 2_3 VIEWS HISTORY: Lumbar spondylosis ; chronic left hip pain; chronic right knee pain COMPARISON: XR L-spine 08/28/2018 FINDINGS: BONES: Prominent left convex curvature of lumbar spine. Grade 1 left lateral listhesis of L3 on 4. Grade 1 anterior listhesis of L4 on 5. No fracture or bone lesion. Moderate degenerative facet arthropathy L3-L4 through L5-S1. DISC SPACES: Multilevel mild narrowing. Moderate narrowing at L5-S1. PARASPINOUS: Negative. No paraspinous abnormality is seen. OTHER: Negative. IMPRESSION: 1. Levoscoliosis and mild-moderate degenerative changes of lumbar spine; slightly progressed. Electronically authenticated by: ROSEMARIE MUHAMMAD Date: 2022-10-03 07:26 Normal [facility] Covid-19 PCR (CVDTB)on 05-17 SARS-CoV-2 (COVID-19) RNA VAN+probe Ql (Unsp spec) Not detected Normal NOT DETECTED [facility] Comment on above: Result Comment: This test is not yet approved or cleared by the [place] FDA. When there are no FDA-approved or cleared tests available, and other criteria are met, FDA can make tests available under an emergency access mechanism called an Emergency Use Authorization (EUA). The EUA for this test is supported by the Rent Collector of Health and Human Service's (HHS's) declaration that circumstances exist to justify the emergency use of in vitro diagnostics for the detection and/or diagnosis of the virus that causes COVID-19. This EUA will remain in effect (meaning this test can be used) for the duration of the COVID-19 declaration justifying emergency of IVDs, unless it is terminated or revoked by FDA (after which the test may no longer be used). When diagnostic testing is negative, the possibility of a false negative should be considered in the context of a patient's recent exposures and the presence of clinical signs and symptoms consistent with SARS-CoV-2. Performed By: #### C VDTBH #### [facility] [address] [place] [address] Dr. Tanisha Ruiz INFLUENZA A AND B AGon 06-04 [facility] SEE BELOW Normal [facility] Comment on above: Result Comment: Nega tive for Flu A protein angiten. Infection due to Flu A cannot be ruled out. Flu A angiten in the sample may be below the detection limit of the test. Performed By: #### I NFLUAB #### [facility] [address] [place] [address] Dr. Tanisha Ruiz [facility] SEE BELOW Normal [facility] Comment on above: Result Comment: Nega tive for Flu B protein antigen. Infection due to Flu B cannot be ruled out. Flu B antigen in the sample may be below the detection limit of the test. Performed By: #### I NFLUAB #### [facility] [address] [place] [address] Dr. Tanisha Ruiz INFLUENZA A AG Negative Normal NEGATIVE SEE COMMENT [facility] Comment on above: Performed By: #### I NFLUAB #### [facility] [address] [address] [address] Tanisha Ruiz INFLUENZA B AG Negative Normal NEGATIVE SEE COMMENT [facility] Comment on above: Performed By: #### I NFLUAB #### [facility] [address] [address] [address] Tanisha Ruiz INTERNAL CONTROLS Within Normal Limits Normal Wi thin Normal Limits [facility] Comment on above: Performed By: #### I NFLUAB #### [facility] [address] [address] [address] Tanisha Ruiz MG MAMM SCREEN 3D SB CADon 03-20-2022 MG MAMM SCREEN 3D SB CAD Patient: YUKO HARRELL Exam Date: 03/20/2022 : 1970 Gender:F Ordering : DR MISTI LIMON Admission #: [id number] Family : Order #: [id number] CLICK HERE TO VIEW EXAM RADIOLOGY REPORT PROCEDURE: MAMMOGRAM SCREENING 3D BILATERAL CAD COMPARISON: MG MAMM SCREEN SB W CAD, 02/16/2020. MG MAMM SCREEN 3D SB CAD, 03/14/2021. INDICATIONS: Screening mammography Calculator Name NCI Breast Cancer Risk Assessment Tool 5 Year Breast Cancer Risk 1.10% Lifetime Breast Cancer Risk 8.60% Personal Breast Cancer No Personal Ovarian Cancer No Treatments None Family Cancers Grandmother-paternal with breast cancer at age 65; Father with lymphoma cancer at age 70. LOCATION: [facility] BREAST COMPOSITION: Heterogeneously dense,which may obscure small masses. FINDINGS: DIAGNOSTIC CATEGORY 2--BENIGN FINDING. NO CHANGE FROM COMPARISON. Scattered benign-appearing nodules are present. Scattered benign-appearing calcifications are present. Scattered benign-appearing [...] PALPABLE LUMP SHOULD BE BIOPSIED. Dictated by: Demarco Mathew MD on 03/21/2022 at 07:50 Approved by: Demarco Mathew MD on 03/21/2022 at 07:[address] [facility] XR wrist LT min 3V*on 2021 XR wrist LT min 3V* [facility] [place] [address] XRay Report Signed Patient: Yuko Harrell MR#: [id number] : 1970 Acct:[id number] Age/Sex: 51 / F ADM Date: 03/17/22 Loc: ER Room: Type: [facility] ER Attending Dr: Copies to: Ever Fowler APRN Ordering Provider: Ever Fowler APRN Date of Service: 03/17/22 XR/XR wrist LT min 3V*: Fall XR wrist LT min 3V* 03/17/2022 4:24 PM SIGNS AND SYMPTOMS: Fall onto left hand, left wrist pain PROTOCOL: Frontal, lateral, and oblique radiographs of the left wrist COMPARISON: None FINDINGS: There is a comminuted mildly impacted fracture of the distal radius with intra-articular extension. The carpal rows are preserved. There is approximately 14 degrees of dorsal tilt of the articular surface of the distal radius. There is soft tissue swelling diffusely. XR/XR wrist LT min 3V* IMPRESSION: There is a comminuted mildly impacted fracture of the distal radius with intra-articular extension. There is approximately 14 degrees of dorsal tilt of the articular surface of the distal radius. Impression dictated by: Amos Urbano M.D.03/17/2022 5:15 PM Dictation Location: [place] [address] Transcribed By: [facility] 03/17/221714 Dictated By: Amos Urbano II, MD 03/17/221712 Signed By: 03/17/221714 Normal [facility] CBC AUTO DIFFon 02-01-2022 BASO # 0.1 103/ul Normal 0.0-0.[address] [facility] Comment on above: Performed By: #### H FPFCBC #### [facility] [address] [place] [address] Dr. Tanisha Ruiz Basophils/100 WBC (Bld) 1.7 % Normal 0.2-2.[address] [facility] Comment on above: Performed By: #### H FPFCBC #### [facility] [address] [place] [address] Dr. Tanisha Ruiz EO # 0.1 103/ul Normal 0.0-0.[address] [facility] Comment on above: Performed By: #### H FPFCBC #### [facility] [address] [place] [address] Dr. Tanisha Ruiz Eosinophils/100 WBC (Bld) 2.5 % Normal 0.9-7.[address] [facility] Comment on above: Performed By: #### H FPFCBC #### [facility] [address] [place] [address] Dr. Tanisha Ruiz Erythrocyte distribution width (RBC) [Ratio] 11.9 % Normal 11.0-15.[address] [facility] Comment on above: Performed By: #### H FPFCBC #### [facility] [address] [place] [address] Dr. Tanisha Ruiz Hematocrit (Bld) [Volume fraction] 41.5 % Normal 36.0-48.[address] [facility] Comment on above: Performed By: #### H FPFCBC #### [facility] [address] [place] [address] Dr. Tanisha Ruiz Hemoglobin (Bld) [Mass/Vol] 14.3 g/dL Normal 12.0-16.[address] [facility] Comment on above: Performed By: #### H FPFCBC #### [facility] [address] [place] [address] Dr. Tanisha Ruiz IG # 0.01 10e3/ul Normal 0.00-0.[address] [facility] Comment on above: Performed By: #### H FPFCBC #### [facility] [address] [place] [address] Dr. Tanisha Ruiz IG % 0.2 % Normal 0.0-0.5 [facility] Comment on above: Performed By: #### H FPFCBC #### [facility] [address] [place] [address] Dr. Tanisha Ruiz LYMPH # 1.8 103/ul Normal 1.2-3.8 [facility] Comment on above: Performed By: #### H FPFCBC #### [facility] [address] [place] [address] Dr. Tanisha Ruiz Lymphocytes/100 WBC (Bld) 38.8 % Normal 20.5-60.0 [facility] Comment on above: Performed By: #### H FPFCBC #### [facility] [address] [place] [address] Dr. Tanisha Ruiz MCH (RBC) [Entitic mass] 31.1 pg Normal 26.7-34.0 [facility] Comment on above: Performed By: #### H FPFCBC #### [facility] [address] [place] [address] Dr. Tanisha Ruiz MCHC (RBC) [Mass/Vol] 34.5 g/dL Normal 29.9-35.2 [facility] Comment on above: Performed By: #### H FPFCBC #### [facility] [address] [place] [address] Dr. Tanisha Ruiz MCV (RBC) [Entitic vol] 90.2 fL Normal 81.0-99.[address] [facility] Comment on above: Performed By: #### H FPFCBC #### [facility] [address] [place] [address] Dr. Tanisha Ruiz MONO # 0.5 103/ul Normal 0.3-0.8 [facility] Comment on above: Performed By: #### H FPFCBC #### [facility] [address] [place] [address] Dr. Tanisha Ruiz Monocytes/100 WBC (Bld) 9.5 % Normal 1.7-12.0 [facility] Comment on above: Performed By: #### H FPFCBC #### [facility] [address] [place] [address] Dr. Tanisha Ruiz NEUT # 2.2 103/ul Normal 1.4-6.5 [facility] Comment on above: Performed By: #### H FPFCBC #### [facility] [address] [address] [address] Tanisha Ruiz Neutrophils/100 WBC (Bld) 47.3 % Normal 43.0-75.[address] [facility] Comment on above: Performed By: #### H FPFCBC #### [facility] [address] [address] [address] Tanisha Ruiz Platelet mean volume (Bld) [Entitic vol] 10.4 fL Normal 9.5-13.[address] [facility] Comment on above: Performed By: #### H FPFCBC #### [facility] [address] [place] [address] Dr. Tanisha Ruiz PLT 287 103/ul Normal 150-[address] [facility] Comment on above: Performed By: #### H FPFCBC #### [facility] [address] [place] [address] Dr. Tanisha Ruiz RBC 4.60 106/ul Normal 4.20-5.[address] [facility] Comment on above: Performed By: #### H FPFCBC #### [facility] [address] [place] [address] Dr. Tanisha Ruiz WBC 4.7 103/ul Normal 4.0-11.[address] [facility] Comment on above: Performed By: #### H FPFCBC #### [facility] [address] [place] [address] Dr. Tanisha Ruiz [facility] PROFILEon 022 Albumin [Mass/Vol] 4.2 g/dL Normal 3.4-5.0 [facility] Comment on above: Performed By: #### H FPF #### [facility] [address] [place] [address] Dr. Tanisha Ruiz Albumin/Globulin [Mass ratio] 1.2 {ratio} Normal [facility] Comment on above: Performed By: #### H FPF #### [facility] [address] [place] [address] Dr. Tanisha Ruiz ALP [Catalytic activity/Vol] 54 U/L Normal 46-116 [facility] Comment on above: Performed By: #### H FPF #### [facility] [address] [address] [address] Tanisha Ruiz ALT [Catalytic activity/Vol] 20 U/L Normal 14-[address] [facility] Comment on above: Performed By: #### H FPF #### [facility] [address] [address] [address] Tanisha Ruiz AST [Catalytic activity/Vol] 16 U/L Normal 15-[address] [facility] Comment on above: Performed By: #### H FPF #### [facility] [address] [address] [address] Tanisha Ruiz Bilirubin [Mass/Vol] 0.5 mg/dL Normal 0.2-1.[address] [facility] Comment on above: Performed By: #### H FPF #### [facility] [address] [address] [address] Tanisha Ruiz Calcium [Mass/Vol] 8.8 mg/dL Normal 8.5-10.1 [facility] Comment on above: Performed By: #### H FPF #### [facility] [address] [address] [address] Tanisha Ruiz Chloride [Moles/Vol] 103 mmol/L Normal 98-[address] [facility] Comment on above: Performed By: #### H FPF #### [facility] [address] [place] [address] Dr. Tanisha Ruiz CHOL-HDL RATIO NORM SEE BELOW Normal [facility] Comment on above: Result Comment: 3.3 - 4.4 LOW RISK 4.4 - 7.1 AVERAGE RISK 7.1 - 11.0 MODERATE RISK >11.0 HIGH RISK Performed By: #### H FPF #### [facility] [address] [address] [address] Tanisha Ruiz Cholesterol [Mass/Vol] 229 mg/dL Critically high <=[address] [facility] Comment on above: Performed By: #### H FPF #### [facility] [address] [address] [address] Tanisha Ruiz Cholesterol in HDL [Mass/Vol] 99 mg/dL Critically high 40-[address] [facility] Comment on above: Performed By: #### H FPF #### [facility] [address] [address] [address] Tanisha Ruiz Cholesterol in LDL [Mass/Vol] 120.6 mg/dL Normal [facility] Comment on above: Performed By: #### H FPF #### [facility] [address] [address] [address] Tanisha Ruiz Cholesterol.total/ Cholesterol in HDL [Mass ratio] 2.3 {ratio} Normal [facility] Comment on above: Performed By: #### H FPF #### [facility] [address] [address] [address] Tanisha Ruiz CO2 [Moles/Vol] 28.0 mmol/L Normal 21.0-32.0 [facility] Comment on above: Performed By: #### H FPF #### [facility] [address] [address] [address] Tanisha Ruiz Creatinine [Mass/Vol] 0.62 mg/dL Normal 0.55-1.[address] [facility] Comment on above: Performed By: #### H FPF #### [facility] [address] [address] [address] Tanisha Ruiz Globulin (S) [Mass/Vol] 3.4 g/dL Normal [facility] Comment on above: Performed By: #### H FPF #### [facility] [address] [address] [address] Tanisha Ruiz Glucose [Mass/Vol] 80 mg/dL Normal 74-106 [facility] Comment on above: Performed By: #### H FPF #### [facility] [address] [address] [address] Tanisha Ruiz HDL NORMAL > or = 60 mg/dl - LO W CARDIOVASCULAR RISK <40 mg/dl - HIGH CARDIOVASCULAR RISK Normal [facility] Comment on above: Performed By: #### H FPF #### [facility] [address] [address] [address] Tanisha Ruiz LDL CALC NORMAL SEE BELOW Normal [facility] Comment on above: Result Comment: <100 mg/dl OPTIMAL 100 - 129 mg/dl NEAR OR ABOVE OPTIMAL 130 - 159 mg/dl BORDERLINE HIGH 160 - 189 mg/dl HIGH >190 mg/dl VERY HIGH Performed By: #### H FPF #### [facility] [address] [place] [address] Dr. Tanisha Ruiz Potassium [Moles/Vol] 3.9 mmol/L Normal 3.5-5.[address] [facility] Comment on above: Performed By: #### H FPF #### [facility] [address] [address] [address] Tanisha Ruiz Protein [Mass/Vol] 7.6 g/dL Normal 6.4-8.2 [facility] Comment on above: Performed By: #### H FPF #### [facility] [address] [place] [address] Dr. Tanisha Ruiz Sodium [Moles/Vol] 139 mmol/L Normal 136-145 [facility] Comment on above: Performed By: #### H FPF #### [facility] [address] [place] [address] Dr. Tanisha Ruiz Triglyceride [Mass/Vol] 47 mg/dL Normal <=[address] [facility] Comment on above: Performed By: #### H FPF #### [facility] [address] [place] [address] Dr. Tanisha Ruiz TSH 2.453 uIU/mL Normal 0.358-3.740 [facility] Comment on above: Performed By: #### H FPF #### [facility] [address] [place] [address] Dr. Tanisha Riuz Urea nitrogen [Mass/Vol] 21.0 mg/dL Critically high 7.0-18.[address] [facility] Comment on above: Performed By: #### H FPF #### [facility] [address] [place] [address] Dr. Tanisha Ruiz Urea nitrogen/Creatinin e [Mass ratio] 33.9 mg/mg Normal [facility] Comment on above: Performed By: #### H FPF #### [facility] [address] [place] [address] Dr. Tanisha Ruiz VLDL CALC 9.4 mg/dL Normal [facility] Comment on above: Performed By: #### H FPF #### [facility] [address] [address] [address] Tanisha Ruiz Vital Signs Date Time Vital Sign Value Performing Clinician Facility 01-04-2025 13:42-0400 Body mass index (BMI) [Ratio] 20.94 kg/m2 Misti Limon MD Work Phone: [facility] 01-04-2025 13:42-0400 Body weight 55.34 kg Misti Limon MD Work Phone: [facility] 01-04-2025 13:42-0400 Diastolic blood pressure 66 mm[Hg] Misti Limon MD Work Phone: [facility] 01-04-2025 13:42-0400 Systolic blood pressure 112 mm[Hg] Misti Limon MD Work Phone: [facility] 10-13-2024 14:55-0400 Body height 162.6 cm Elizabeth Encinas MD Work Phone: [facility] 10-13-2024 14:55-0400 Body mass index (BMI) [Ratio] 20.77 kg/m2 Elizabeth Encinas MD Work Phone: [facility] 10-13-2024 14:55-0400 Body weight 54.88 kg Elizabeth Encinas MD Work Phone: [facility] 10-13-2024 14:55-0400 Diastolic blood pressure 70 mm[Hg] Elizabeth Encinas MD Work Phone: [facility] 10-13-2024 14:55-0400 Heart rate 86 /min Elizabeth Encinas MD Work Phone: [facility] 10-13-2024 14:55-0400 Systolic blood pressure 115 mm[Hg] Elizabeth Encinas MD Work Phone: [facility] 03-17-2022 16:07-0400 Body height 162.56 cm MD Olga Saucedo Work Phone: [facility] 03-17-2022 16:07-0400 Body temperature 97.6 [degF] MD Olga Saucedo Work Phone: [facility] 03-17-2022 16:07-0400 Body weight 54.43 kg MD Olga Saucedo Work Phone: [facility] 03-17-2022 16:07-0400 Diastolic blood pressure 69 mm[Hg] MD Olga Saucedo Work Phone: [facility] 03-17-2022 16:07-0400 Heart rate 60 /min MD Olga Saucedo Work Phone: [facility] 03-17-2022 16:07-0400 Respiratory rate 18 /min MD Olga Saucedo Work Phone: [facility] 03-17-2022 16:07-0400 SaO2% (BldA) [Mass fraction] 100 % MD Olga Saucedo Work Phone: [facility] 03-17-2022 16:07-0400 Systolic blood pressure 117 mm[Hg] MD Olga Saucedo Work Phone: [facility] Encounters Encounter Date Encounter Type Care Provider Facility Start: 01-04-2025 End: 01-04-2025 Patient encounter procedure Misti Limon MD Work Phone: [facility] Work Phone: Start: 01-04-2025 End: 01-04-2025 Periodic preventive med est patient 40-64yrs Misti Limon MD Work Phone: [facility] Comment on above: Well woman exam with routine gynecological exam (Primary Dx); Menopausal symptoms; Cervical cancer screening; Other screening mammogram; Screening for HPV (human papillomavirus); History of HPV infection Start: 01-04-2025 End: 01-04-2025 ambulatory MSITI LIMON Not Available Start: 11-12-2024 End: 11-12-2024 Telephone encounter Misti Limon MD Work Phone: [facility] Start: 10-13-2024 End: 10-13-2024 ambulatory ELIZABETH ENCINAS Not Available Start: 10-13-2024 End: 10-13-2024 Office outpatient new 45 minutes Elizabeth Encinas MD Work Phone: [facility] Comment on above: Nasal congestion (Pr imary Dx); Left ear pain Start: 10-13-2024 End: 10-13-2024 Bamboo flowsheet Elizabeth Encinas MD Work Phone: [facility] Start: 10-13-2024 End: 10-13-2024 Bamboo flowsheet Elizabeth Encinas MD Work Phone: [facility] Start: 10-09-[address] OLGA SAUCEDO . Facili ty:[facility] Start: 10-08-2022 End: 10-09-[address] OLGA SAUCEDO . Facility:[facility] Start: 10-02-2022 End: 10-03-[address] OLGA SAUCEDO . Facility:[facility] Start: 06-04-2022 End: 06-04-[address] OLGA SAUCEDO . Facility:[facility] Start: 03-20-2022 End: 03-21-[address] DEMARCO MATHEW Facility:[facility] Start: 03-17-2022 End: 03-17-2022 Emergency department patient visit Ever Fowler Facility:[facility] Start: 03-17-2022 End: 03-17-2022 Emergency department patient visit MD Olga Saucedo Work Phone: [facility] Start: 02-01-2022 End: 02-02-[address] OLGA SAUCEDO . Facility:[facility] Start: 09-05-2017 End: 09-06-2017 Ambulatory DEFAULT PHYSICIAN Facility:[facility] Procedures Date Procedure Procedure Detail Performing Clinician Start: 03-25-2024 Mammography Elizabeth bernabe MD Work Phone: Start: 12-31-2023 Microscopic observat ion [Identifier] in Cervix by Cyto stain Elizabeth Encinas MD Work Phone: Start: 03-17-2022 Plain X-ray of left wrist MD Olga Saucedo Work Phone: Plan of Treatment Date Care Activity Detail Author Start: 12-26-2027 Screening for malignant neoplasm of cervix [facility] Start: 12-30-2026 Screening for malignant neoplasm of cervix Pap Smear [facility] Start: 01-10-2026 End: 01-10-2026 Patient encounter procedure 01/10/2026 10:00 AM EDT Office Visit [facility] [address] [place] [address] Misti Limon MD [address] [place], [place] [id number] [facility] Start: 03-25-2025 End: 03-02-2026 DBT Breast - bilateral screening Bilateral screening mammogram with tomosynthesis Imaging Routine Other screening mammogram Expected: 03/25/2025, Expires: 03/02/2026 [facility] Work Phone: Comment on above: Expected: 03/25/2025 , Expires: 03/02/2026 Start: 03-25-2025 Screening for malignant neoplasm of breast Mammogram [facility] Start: 02-15-2025 Influenza vaccination N [facility] Start: 12-31-2024 End: 12-31-2024 Patient encounter procedure 12/31/2024 10:45 AM EDT Office Visit [facility] [address] [place] [address] Misti Limon MD [address] [place] [address] [facility] Start: 1970 Screening for malignant neoplasm of colon [facility] IGP, APT HPV,RFX 16/18,45 IGP, APT HPV,RFX 16/18,45 Lab Routine Cervical cancer screening Screening for HPV (human papillomavirus) Ordered: 01/04/2025 [facility] Comment on above: Ordered: 01/04/2025 Patient Education Wrist Fracture (DC) [facility] Work Phone: Patient referral [facility] Work Phone: Payers Date Payer Category Payer Self-pay [id number] 2016 Private Health Insurance [employer] [id number] 1970 Unknown [id number] 1968 Unknown [id number] 1968 Unknown [id number] 1968 Unknown [id number] [id number] 1968 Unknown [id number] 593 1968 Unknown [id number] 1259 1968 Unknown [id number] [id number] 1959 Self-pay [id number] 1961 Unknown [id number] Unknown Unknown [id number] Unknown [id number] Social History Date Type Detail Facility Start: 03-17-2022 End: 12-25-2022 Tobacco smoking status NHIS Never smoked tobacco (finding) [facility] Start: 1970 Sex Assigned At Female F [facility] Start: 12-25-2022 Tobacco use and exposure Smokeless tobacco non-user [facility] Start: 12-31-2023 End: 01-04-2025 Alcoholic beverage intake Ex-drinker (finding) [facility] Start: 12-31-2023 End: 01-04-2025 History of Social function [facility] Start: 12-31-2023 End: 01-04-2025 Tobacco use panel [facility] Start: 01-06-2023 Alcohol Comment caffeine: 1-2 cups per days, coffee [facility] Start: 12-25-2022 Gender identity Identifies as female gender (finding) [facility] History of Present illness Narrative 01-04-2025 Misti Limon MD - 01/04/2025 2:00 PM EDT Note Date & Type Note Facility 01-04-2025 History of Presen t illness Narrative Images from the original note were not included. Misti Limon MD Obstetrics and Gynecology Patient: Yuko Harrell, : 1970 (54 y.o.) DOS 01/04/25 Exam Date: 01/04/2025 HPI: Yearly exam Taking prometrium every 3rd month, but the fluctuation of hormones seems to make her feel poorly Visit Vitals BP 112/66 Wt 122 lb BMI 20.94 kg/m OB Status Postmenopausal Smoking Status Never BSA 1.58 m OB History Para Term AB Living 1 1 1 0 0 1 SAB IAB Ectopic Multiple Live Births 0 0 0 0 1 # Outcome Date GA Lbr Henri/2nd Weight Sex Type Anes PTL Lv 1 Term Obstetric Comments Pap: 01/07-Neg CHARLIE: HPV Negg Pap: 01/06-Neg CHARLIE: HPV Pos Mammo: 03/24/24-Neg (TBH) Menopausal Medication and Allergies Medication Documentation Review Audit Reviewed by Wendi Jj MA (Aerodynamics Teacher) on 01/04/25 at 1344 Medication Order Taking? Sig Documenting Provider Last Dose Status estradiol (Estrace) 1 MG tablet [id number] Take 1 tablet (1 mg) by mouth Daily Misti Limon MD 12/30/24 2359 fluticasone (Flonase) 50 MCG/ACT nasal spray [id number] Administer 2 sprays into each nostril Daily Shake gently. Before first use, prime pump. After use, clean tip and replace cap. Elizabeth Encinas MD Active nabumetone (Relafen) 500 MG tablet [id number] every 12 (twelve) hours Historical Provider, Active progesterone 200 MG capsule [id number] TAKE 1 CAPSULE BY MOUTH DAILY AT BEDTIME ON DAYS 1-12 EACH MONTH Misti Limon MD Active valACYclovir (Valtrex) 500 MG tablet [id number] Yes Take by mouth Misti Limon MD Active Allergies Allergen Reactions Penicillins Hives and Unknown Past Medical History: Diagnosis Date Ear problems Ganglion cyst Lipoma Maxillary sinusitis Past Surgical History: Procedure Laterality Date BREAST RECONSTRUCTION Reduction-2002 BREAST SURGERY 2007 augmentation mammoplasty FRACTURE SURGERY GANGLION CYST EXCISION x3-Right wrist OTHER SURGICAL HISTORY removed R rib TONSILLECTOMY VAGINAL DELIVERY WRIST FRACTURE SURGERY 03/21/2022 Physical Exam: Objective Physical Exam Constitutional: Appearance: Normal appearance. Genitourinary: Vulva normal. No vaginal discharge or bleeding. Right Adnexa: not palpable. Left Adnexa: not palpable. No cervical lesion. Uterus is not enlarged or tender. Breasts: Right: Normal. Left: Normal. Pulmonary: Effort: Pulmonary effort is normal. Abdominal: General: Abdomen is flat. Palpations: Abdomen is soft. Neurological: Mental Status: She is alert. Assessment/Plan ICD-10-CM 1. Well woman exam with routine gynecological exam Z01.419 2. Menopausal symptoms N95.1 3. Cervical cancer screening Z12.4 IGP, APT HPV,RFX 16/18,45 4. Other screening mammogram Z12.31 Bilateral screening mammogram with tomosynthesis 5. Screening for HPV (human papillomavirus) Z11.51 IGP, APT HPV,RFX 16/18,45 6. History of HPV infection Z86.19 Change to estradiol and progesterone daily Orders Placed This Encounter Procedures Bilateral screening mammogram with tomosynthesis U/S and spot compression if indicated Standing Status: Future Expected Date: 03/25/2025 Expiration Date: 03/02/2026 Reason for exam:: screen Is the patient ?: No IGP, APT HPV,RFX 16/18,45 Print requisition?: Yes documented in this encounter [facility] Telephone encounter Note 11-12-2024 Telephone Encounter - Liban Saha - 11/12/2024 10:44 AM EDT Note Date & Type Note Facility 11-12-2024 Telephone encount er Note sent letter 11/12/24 that [facility] will be out of the office & to call to r/s [facility] Note 11-12-2024 Telephone Encounter - Liban Saha - 11/12/2024 10:44 AM EDT Note Date & Type Note Facility 11-12-2024 Miscellaneous Notes Formattin g of this note might be different from the original. sent letter 11/12/24 that [facility] will be out of the office & to call to r/s documented in this encounter [facility] History of Present illness Narrative 10-13-2024 Elizabeth Encinas MD - 10/13/2024 2:40 PM EDT Note Date & Type Note Facility 10-13-2024 History of Presen t illness Narrative Subjective Patient ID: Fatoumata Harrell is a 54 y.o. female who presents for Ear Problem (Left ear pain) Pt feels something move in her left ear when she runs ever since ears irrigated in Nov. Some nasal obstruction. Does not use flonase. Review of Systems All other systems reviewed and are negative. Family History Problem Relation Name Age of Onset Breast cancer Paternal Grandmother Gill Breast cancer Mother's Sister Heidi Active Ambulatory Problems Diagnosis Date Noted Other spondylosis with radiculopathy, lumbar region 11/17/2022 Lumbar paraspinal muscle spasm 11/17/2022 Arthritis of carpometacarpal (CMC) joint of left thumb 09/28/2024 Chronic left maxillary sinusitis 09/28/2024 Hearing loss of left ear 09/28/2024 Lumbosacral spondylosis without myelopathy 09/28/2024 Serous otitis media 09/28/2024 Resolved Ambulatory Problems Diagnosis Date Noted No Resolved Ambulatory Problems Past Medical History: Diagnosis Date Ear problems Ganglion cyst Lipoma Maxillary sinusitis Past Surgical History: Procedure Laterality Date BREAST RECONSTRUCTION Reduction-2002 BREAST SURGERY 2007 augmentation mammoplasty FRACTURE SURGERY GANGLION CYST EXCISION x3-Right wrist OTHER SURGICAL HISTORY removed R rib TONSILLECTOMY VAGINAL DELIVERY WRIST FRACTURE SURGERY 03/21/2022 Allergies Allergen Reactions Penicillins Hives and Unknown Current Outpatient Medications on File Prior to Visit Medication Sig Dispense Refill estradiol (Estrace) 1 MG tablet Take 1 tablet (1 mg) by mouth Daily 90 tablet 3 nabumetone (Relafen) 500 MG tablet every 12 (twelve) hours progesterone (Prometrium) 200 MG capsule Take 1 capsule (200 mg) by mouth Daily Take at bedtime days 1-12 each month 36 capsule 3 [DISCONTINUED] valACYclovir (Valtrex) 500 MG tablet TAKE 1 TABLET BY MOUTH IN THE MORNING AND 1 TABLET BEFORE BEDTIME FOR 3 DAYS 6 tablet 7 No current facility-administered medications on file prior to visit. Objective Last Recorded Vitals Vitals: 10/13/24 1455 BP: 115/70 Pulse: 86 ENT Physical Exam Constitutional Appearance: patient appears well-developed, well-nourished and well-groomed, Head and Face Appearance: head appears normal and face appears atraumatic; Ear Ear Canals: right ear canal normal; left ear canal normal; Tympanic Membranes: right tympanic membrane normal; left tympanic membrane normal; Ear comments: LT - no cerumen evident but ant TM obscured by EAC. Nose External Nose: nares patent bilaterally; external nose normal; Internal Nose: septum normal; Oral Cavity/Oropharynx Tongue: normal; Oral mucosa: normal; Hard palate: normal; Soft palate: normal; Tonsils: normal; Neck Neck: neck normal; neck palpation normal; Thyroid: thyroid normal; Respiratory Inspection: breathing unlabored; normal breathing rate; Auscultation: breath sounds are clear; Cardiovascular Inspection: extremities are warm and well perfused; no peripheral edema present; Auscultation: regular rate and rhythm; Assessment/Plan Diagnoses and all orders for this visit: Nasal congestion Left ear pain Ears look good. F/U if sx worsen. Trial of flonase for night time nasal obs documented in this encounter [facility] Evaluation note Note Date & Type Note Facility Evaluation note No assessment information availa [facility] Work Phone: Evaluation note Note Date & Type Note Facility Evaluation note Diagnosis Nasal congestion- Primary Other diseases of nasal cavity and sinuses Left ear pain Unspecified otalgia documented in this encounter [facility] Evaluation note Note Date & Type Note Facility Evaluation note Diagnosis Well woman exam with routine gynecological exam- Primary Routine gynecological examination Menopausal symptoms Symptomatic menopausal or female climacteric states Cervical cancer screening Screening for malignant neoplasm of the cervix Other screening mammogram Screening for HPV (human papillomavirus) Special screening examination for human papillomavirus (HPV) History of HPV infection documented in this encounter [facility] Summary Purpose Family History No Family History Records FoundNo Family History Records FoundNo Family History Records FoundNo Family History Records Found Advance Directives No Advanced Directives Records Found Advance Directive Response Recorded Date/ Time Advance Directives No March 17, 2022 5:00pm Chief Complaint and Reason for Visit Chief Complaint Left arm injury Additional Source Comments INFORMATION SOURCE (unrecogn ized section and content) DATE CREATED AUTHOR 12/06/2017 [facility] DATE CREATED AUTHOR AUTHOR'S ORGANIZ ATION 03/27/2022 [facility] DATE CREATED AUTHOR AUTHOR'S ORGANIZ ATION 10/17/2022 [facility] DATE CREATED AUTHOR AUTHOR'S ORGANIZ ATION 01/06/2025 [facility] EPIC Care Teams (unrecognized sec tion and content) Team Status: Inactive Member Role Status Dates Olga Saucedo MD Primary Care Provider Active Ever Fowler APRN Emergency Provider Active Team Status: Active Member Role Status Dates Olga Saucedo MD Primary Care Provider Active Machine Sorter Relationship Specialty Start Date End Date Olga Saucedo MD [address] [place] [address] PCP - General Family Medicine 11/16/22 Machine Sorter Relationship Specialty Start Date End Date Olga Saucedo MD [address] [place] [address] PCP - General Family Medicine 11/16/22 Machine Sorter Relationship Specialty Start Date End Date Olga Saucedo MD PCP - General Family Medicine 11/16/22 Machine Sorter Relationship Specialty Start Date End Date Olga Saucedo MD PCP - General Family Medicine 11/16/22 Goals (unrecognized section and content) Goals may be documented in a n alternate section Reason for Visit (unrecogniz ed section and content) Reason Comments Ear Problem Left ear pain FOR RECORDS PERTAINING TO PATIENTS WHO ARE OR HAVE BEEN ENROLLED IN A CHEMICAL DEPENDENCY/SUBSTANCEABUSE PROGRAM, SOME INFORMATION MAY BE OMITTED. This clinical summary was aggregated from multiple sources. Caution should be exercised in using it in the provision of clinical care. This summary normalizes information from multiple sources, and as a consequence, information in this document may materially change the coding, format and clinical context of patient data. In addition, data may be omitted in some cases. CLINICAL DECISIONS SHOULD BE BASED ON THE PRIMARY CLINICAL RECORDS. [facility] [employer], [facility]. provides no warranty or guarantee of the accuracy or completeness of information in this document.
--- NOTE | 2025-03-30 16:35 | MM_ITS ---
Patient Name: LAUREN HARRELL MR#: [id number] : 1970 Exam Date: 03/30/2025 Ordering Doctor: DR MISTI JIMÉNEZ RADIOLOGY REPORT PROCEDURE: MM TOMOSYNTHESIS SCREENING BI COMPARISON: MM TOMOSYNTHESIS SCREENING BI, 03/24/2024. MM TOMOSYNTHESIS SCREENING BI, 03/21/2023. MG MAMM SCREEN 3D SB CAD, 03/20/2022. MG MAMM SCREEN SB W CAD, 12/02/2012. INDICATIONS: Screening mammogram Calculator Name NCI Breast Cancer Risk Assessment Tool 5 Year Breast Cancer Risk 1.20% Lifetime Breast Cancer Risk 8.10% Personal Breast Cancer No Personal Ovarian Cancer No Treatments None Family Cancers Aunt-maternal with breast cancer at age 82; Grandmother-paternal with breast cancer at age ~65; Father with lymphoma cancer at age 70. LOCATION: [facility] BREAST COMPOSITION: The breasts are heterogeneously dense, which may obscure small masses. FINDINGS: RIGHT BREAST: No significant suspicious finding. LEFT BREAST: No significant suspicious finding. DIAGNOSTIC CATEGORY 1--NEGATIVE. RECOMMENDATIONS: ROUTINE MAMMOGRAM AND CLINICAL EVALUATION IN 12 MONTHS. Dictated by: Neto Phan MD on 03/31/2025 at 14:03 Approved by: Neto Phan MD on 03/31/2025 at 14:05
== END 2025-03-30 15:54 | disposition home or self-care (01) ==
LOC: MAMMO 15:53
PROVIDERS: PCP Family Medicine; Visit Provider Obstetrics & Gynecology
DX: Z12.31 Encounter for screening mammogram for malignant neoplasm of breast (principal); Z80.3 Family history of malignant neoplasm of breast; Z80.7 Family history of other malignant neoplasms of lymphoid, hematopoietic and related tissues
CPT/HCPCS: 77063; 77067